=== PATIENT | male | born 1935 | race Caucasian/White ===

== ENCOUNTER 2020-08-08 00:37 | Observation (INO) | payer MEDICARE, OTHER ==
[2020-08-08] MEDS ORDERED: Nitroglycerin 0.4 MG Tab.SL SL ONE (01:16)
[2020-08-08] MEDS ORDERED: GI Cocktail Oral Solution 30 ML PO ONE (01:22)
--- NOTE | 2020-08-08 01:22 | EDM.PDOC ---
ED HPI GENERAL MEDICAL PROBLEM - General Chief Complaint: Chest Pain Stated Complaint: CP Time Seen by Provider: 08/08/20 01:00 Source of Information: Reports: Patient, Family History Limitations: Reports: No Limitations - History of Present Illness INITIAL COMMENTS - FREE TEXT/NARRATIVE: Patient presents to ER with complaints of bilateral anterior chest and upper quadrant abdominal pain since 190. Was able to eat supper without incident. Started to note the pain across his chest a couple hours later. Has been taking methylprednisolone and Celebrex since seeing Dr. Munguia earlier in the week for back problems. Also had injections x3 in his back at that time. Was returning home from [facility] after buying cigarettes when starting having the discomfort. "sort of short of breath". No diaphoresis. Did get nauseated, had one emesis. No blood in the vomitus. Does question if stools are darker in nature but no notable blood. No diarrhea. No history of cardiac events. Does take metoprolol for HTN and Lipitor for hyperlipidemia. Rates pain at a 6-7. Onset: Today Duration: Hour(s):, Constant Location: Reports: Chest Quality: Reports: Ache, Sharp Severity: Moderate Improves with: Reports: None Associated Symptoms: Reports: Chest Pain, Nausea/Vomiting, Shortness of Breath. Denies: Confusion, Cough, Diaphoresis, Fever/Chills, Loss of Appetite, Malaise, Syncope, Weakness Epigastric Pain Score (Numeric/FACES): 6 - Related Data Allergies Allergy/AdvReac Type Severity Reaction Status Date / Time No Known Allergies Allergy Verified 08/08/20 00:48 Home Meds: Home Meds Dextran 70/Hypromellose [Artificial Tears] 1 drop EYEBOTH DAILY PRN 01/09/14 [History] Metoprolol Tartrate [Lopressor] 50 mg PO DAILY 01/09/14 [History] atorvaSTATin [Lipitor] 20 mg PO DAILY 01/09/14 [History] Celecoxib 200 mg PO BID 08/08/20 [History] methylPREDNISolone [Medrol] 4 mg PO ASDIRECTED 08/08/20 [History] Past Medical History Cardiovascular History: Reports: High Cholesterol, Hypertension Musculoskeletal History: Reports: Back Pain, Chronic, Neck Pain, Chronic Social & Family History - Tobacco Use Tobacco Use Status *Q: Current Every Day Tobacco User Tobacco Use Within Last Twelve Months: Cigarettes Packs/Tins Daily: 1 ED ROS GENERAL - Review of Systems Review Of Systems: See Below Constitutional: Denies: Fever, Chills, Malaise, Weakness, Fatigue, Decreased Appetite HEENT: Denies: Ear Pain, Rhinitis, Sinus Problem, Throat Pain, Vertigo Respiratory: Reports: Shortness of Breath. Denies: Cough Cardiovascular: Reports: Chest Pain. Denies: Edema, Lightheadedness Endocrine: Denies: Fatigue GI/Abdominal: Reports: Abdominal Pain, Nausea, Vomiting, Other ("darker stools"). Denies: Constipation, Diarrhea : Reports: No Symptoms Musculoskeletal: Reports: Neck Pain, Back Pain Skin: Reports: No Symptoms Neurological: Reports: No Symptoms ED EXAM, GENERAL - Physical Exam Exam: See Below Exam Limited By: No Limitations General Appearance: Alert, WD/WN, No Apparent Distress Ears: Normal External Exam, Normal TMs Nose: Normal Inspection, Normal Mucosa, No Blood Throat/Mouth: Normal Inspection, Normal Oropharynx Head: Normocephalic Neck: Normal Inspection, Supple, Non-Tender Respiratory/Chest: No Respiratory Distress, Lungs Clear, Normal Breath Sounds Cardiovascular: Regular Rate, Rhythm GI/Abdominal: Normal Bowel Sounds, Soft, Tender (midepigastric area, mild in nature) Rectal (Males) Exam: Normal Exam, Heme - Stool Extremities: Normal Inspection, No Pedal Edema Neurological: Alert, Oriented Skin Exam: Warm, Dry Course - Vital Signs Last Recorded V/S: Last Vital Signs Temp 98 F 08/08/20 01:00 Pulse 66 08/08/20 01:32 Resp 18 08/08/20 01:00 BP 170/65 H 08/08/20 01:32 Pulse Ox 97 08/08/20 01:00 - Orders/Labs/Meds Orders: Active Orders 24 hr Category Date Time Status Patient Status Manage Transfer [TRANSFER] Routine ADT 08/08/20 01:39 Active EKG Documentation Completion [RC] STAT Care 08/08/20 00:39 Active Chest 2V [CR] Stat Exams 08/08/20 00:39 Taken Resuscitation Status Routine Resus Stat 08/08/20 01:40 Ordered Labs: Laboratory Tests 08/08/20 08/08/20 08/08/20 Range/Units 00:39 00:39 00:39 WBC 11.3 H (5.0-10.0) 10^3/uL RBC 3.81 L (4.50-6.00) 10^6/uL Hgb 13.3 L (14.0-18.0) g/dL Hct 37.4 L (40.0-54.0) % MCV 98.2 H (82.0-94.0) fL MCH 34.9 H (27.0-32.0) pg MCHC 35.6 (33.0-38.0) g/dL RDW Coeff of Yasemin 13.3 (11.0-15.0) % Plt Count 229 (150-400) 10^3/uL Neut % (Auto) 85.0 (35-85) % Lymph % (Auto) 7.0 L (10-55) % [place] % (Auto) 8.0 (0-16) % Eos % (Auto) 0 (0-5) % Baso % (Auto) 0 (0-3) % Neut # (Auto) 9.57 H (1.80-7.00) 10^3/uL Lymph # (Auto) 0.79 L (1.00-4.80) 10^3/uL [place] # (Auto) 0.90 H (0.00-0.80) 10^3/uL Eos # (Auto) 0.00 (0.00-0.45) 10^3/uL Baso # (Auto) 0.00 10^3/uL PT 9.9 (9.7-12.3) SEC INR 0.90 L (0.92-1.18) APTT 19.9 L (23.2-32.3) SEC Sodium 143 (136-145) mEq/L Potassium 4.0 (3.5-5.0) mEq/L Chloride 104 (98-106) mEq/L Carbon Dioxide 29 (21-32) mmol/L BUN 29 H D (7-18) mg/dL Creatinine 1.2 (0.7-1.3) mg/dL Est Cr Clr Drug Dosing TNP Estimated GFR (MDRD) 58 L (>=60) mL/min Glucose 131 H D (75-99) mg/dL Calcium 8.9 (8.4-10.1) mg/dL Total Bilirubin 0.5 (0.0-1.0) mg/dL AST 17 (15-37) U/L ALT 34 (12-78) U/L Alkaline Phosphatase 55 (46-116) U/L Lactate Dehydrogenase 166 (100-190) U/L Creatine Kinase 58 (35-232) U/L Troponin I < 0.017 (0.00-0.06) ng/mL Total Protein 6.9 (6.4-8.2) g/dL Albumin 3.7 (3.4-5.0) g/dL Amylase 63 (25-115) U/L Lipase 95 (73-393) U/L Meds: Medications Discontinued Medications Generic Name Dose Route Start Last Admin Trade Name Getq PRN Reason Stop Dose Admin Al Hydroxide/Mg Hydroxide 30 ml 08/08/20 01:22 Gi Cocktail Oral Solution 30 Ml PO 08/08/20 01:23 ONETIME ONE Al Hydroxide/Mg Hydroxide 30 0 ml 08/08/20 01:26 08/08/20 01:32 ml/ Lidocaine HCl 15 ml PO 08/08/20 01:27 30 ml ONETIME ONE Administration Nitroglycerin 0.4 mg 08/08/20 01:16 08/08/20 01:32 Nitroglycerin 0.4 Mg Tab.Sl SL 08/08/20 01:17 0.4 mg ONETIME ONE Administration - Re-Assessments/Exams Free Text/Narrative Re-Assessment/Exam: 08/08/20 01:45 labs are all normal, EKG shows sinus arrhythmia. Chest xray normal. Was given nitro which helped blood pressure, helped minimally. given GI cocktail with some relief. Will admit for observation. Start Protonix. telemetry. Departure - Departure Time of Disposition: 01:47 Disposition: Refer to Observation Condition: Fair Clinical Impression: Atypical chest pain, Midepigastric pain Forms: ED Department Discharge Sepsis Event Note (ED) - Focused Exam Vital Signs: Vital Signs Temp Pulse Pulse Resp BP BP Pulse Ox 08/08/20 01:32 66 170/65 H 08/08/20 01:00 98 F 60 18 170/65 H 97 - Problem List & Annotations (1) Atypical chest pain SNOMED Code(s): 397231912 Code(s): R07.89 - OTHER CHEST PAIN Status: Acute Priority: High (2) Midepigastric pain SNOMED Code(s): 20767245 Code(s): R10.13 - EPIGASTRIC PAIN Status: Acute Priority: High - Problem List Review Problem List Initiated/Reviewed/Updated: Yes - My Orders Last 24 Hours: My Active Orders 08/08/20 00:39 EKG Documentation Completion [RC] STAT Chest 2V [CR] Stat 08/08/20 01:39 Patient Status Manage Transfer [TRANSFER] Routine 08/08/20 01:40 Resuscitation Status Routine - Assessment/Plan Admission H&P: Please use this note as an admission H&P Last 24 Hours: My Active Orders 08/08/20 00:39 EKG Documentation Completion [RC] STAT Chest 2V [CR] Stat 08/08/20 01:39 Patient Status Manage Transfer [TRANSFER] Routine 08/08/20 01:40 Resuscitation Status Routine Assessment:: Atypical Chest Pain Midepigastric pain Plan: Admit observation. Start IV Protonix. Hold steroids and Celebrex for now. Fentanyl as needed for pain. property assessment monitor.
[2020-08-08] MEDS ORDERED: Alum Hydrox/Mag Hydrox/Simeth 30 ML, Lidocaine 2% 15 ML PO ONE ×2 (01:26)
[2020-08-08 01:28] LABS: CHLORIDE,CL 104 mEq/L (98-106); SODIUM,NA 143 mEq/L (136-145)
[2020-08-08 01:32] LABS: PTT,PARTIAL THROMBOPLSTIN TIME 19.9 SEC (23.2-32.3)
[2020-08-08] MEDS ORDERED: Polyvinyl Alcohol 1.4% Ophth Soln 15 ML Bottle EYEBOTH PRN (01:54)
[2020-08-08] MEDS ORDERED: Sodium Chloride 0.9% 1,000 ML IV SCH (02:42)
[2020-08-08] MEDS ORDERED: Ondansetron 4 MG Tab.DIS PO PRN (02:42)
[2020-08-08] MEDS ORDERED: Ondansetron 4 MG/2 ML SDV IV PRN (02:42)
[2020-08-08] MEDS ORDERED: fentaNYL 50 MCG/ML SDV IVPUSH PRN (02:42)
[2020-08-08] MEDS ORDERED: Acetaminophen 325 MG Tab PO PRN (02:42)
[2020-08-08] MEDS ORDERED: Pantoprazole 40 MG Vial IVPUSH ONE (03:00)
[2020-08-08 07:39] LABS: CHLORIDE,CL 106 mEq/L (98-106); SODIUM,NA 144 mEq/L (136-145)
[2020-08-08] MEDS ORDERED: Metoprolol Tartrate 50 MG Tab PO SCH (08:00)
[2020-08-08] MEDS ORDERED: atorvaSTATin 20 MG Tab PO SCH (08:00)
--- NOTE | 2020-08-08 14:13 | PCM.DCSUM1 ---
Discharge Summary - Hospital Course Free Text/Narrative:: Patient presents to ER with complaints of bilateral anterior chest and upper quadrant abdominal pain since 1900. Was able to eat supper without incident. Started to note the pain across his chest a couple hours later. Has been taking methylprednisolone and Celebrex since seeing Dr. Munguia earlier in the week for back problems. Also had injections x3 in his back at that time. Was returning home from [facility] after buying cigarettes when starting having the discomfort. "sort of short of breath". No diaphoresis. Did get nauseated, had one emesis. No blood in the vomitus. Does question if stools are darker in nature but no notable blood. No diarrhea. No history of cardiac events. Does take metoprolol for HTN and Lipitor for hyperlipidemia. Rates pain at a 6-7. EKG showed sinus arrhythmia. Troponin negative. All labs essentially unremarkable. Did get some relief from GI cocktail. Admitted for cardiac monitoring, repeat trononin and IV Protonix. Diagnosis: Stroke: No Modified [place] Scale: No Symptoms at All Modified [place] Scale Score: 0 - Discharge Data Discharge Date: 08/08/20 Discharge Disposition: Home, Self-Care 01 Condition: Good - Referral to Home Health Primary Care Physician: Mike Wynn MD - Discharge Diagnosis/Problem(s) (1) Atypical chest pain SNOMED Code(s): 768065671 ICD Code: R07.89 - OTHER CHEST PAIN Status: Acute Priority: High Current Visit: Yes (2) Midepigastric pain SNOMED Code(s): 50915883 ICD Code: R10.13 - EPIGASTRIC PAIN Status: Acute Priority: High Current Visit: Yes - Patient Summary/Data Complications: none Hospital Course: Patient is feeling good this am. Pain was resolved a few hours after admit. IV Protonix was started. Held NSAIDS and prednisone. Occult stool was negative. Tolerated full liquid diet this am without pain, increased to regular this noon and did well. Has not had recurring pain. Ambulating in halls. Tolerated well. Will discharge home and further hold his medrol dose pack and Celebrex at this time. Follow up with Dr. Munguia later in the week. May need gallbladder work up if pain returns as well or consider EGD. - Patient Instructions Diet: Usual Diet as Tolerated Activity: As Tolerated - Discharge Plan *PRESCRIPTION DRUG MONITORING PROGRAM REVIEWED*: No *COPY OF PRESCRIPTION DRUG MONITORING REPORT IN PATIENT SEB: No Prescriptions/Med Rec: Pantoprazole Sodium [Protonix] 40 mg PO DAILY #30 tablet. Home Medications: Home Meds Dextran 70/Hypromellose [Artificial Tears] 1 drop EYEBOTH DAILY PRN 01/09/14 [History] Metoprolol Tartrate [Lopressor] 50 mg PO DAILY 01/09/14 [History] atorvaSTATin [Lipitor] 20 mg PO DAILY 01/09/14 [History] Pantoprazole Sodium [Protonix] 40 mg PO DAILY #30 tablet. 08/08/20 [Rx] Forms: ED Department Discharge Referrals: Adam Munguia MD [Ordering Only Provider] - (Follow up with Dr. Munguia in one week) - Discharge Summary/Plan Comment DC Time >30 min.: No - General Info Date of Service: 08/08/20 Admission Dx/Problem (Free Text: Midepigastric Pain Functional Status: Reports: Pain Controlled, Tolerating Diet, Ambulating, Urinating - Review of Systems General: Reports: No Symptoms HEENT: Reports: Rhinitis. Denies: Ear Pain, Sinus Congestion Pulmonary: Denies: Shortness of Breath, Cough Cardiovascular: Denies: Chest Pain, Edema, Lightheadedness Gastrointestinal: Denies: Abdominal Pain, Diarrhea, Nausea, Vomiting Genitourinary: Reports: No Symptoms Musculoskeletal: Reports: Back Pain Skin: Reports: No Symptoms Neurological: Reports: Weakness - Patient Data Vitals - Most Recent: Last Vital Signs Temp 98.2 F 08/08/20 12:00 Pulse 77 08/08/20 12:00 Resp 18 08/08/20 12:00 BP 112/55 L 08/08/20 12:00 Pulse Ox 92 L 08/08/20 12:00 Weight - Most Recent: 151 lb 3.2 oz Lab Results - Last 24 hrs: Laboratory Results - last 24 hr 08/08/20 08/08/20 08/08/20 Range/Units 00:39 00:39 00:39 WBC 11.3 H (5.0-10.0) 10^3/uL RBC 3.81 L (4.50-6.00) 10^6/uL Hgb 13.3 L (14.0-18.0) g/dL Hct 37.4 L (40.0-54.0) % MCV 98.2 H (82.0-94.0) fL MCH 34.9 H (27.0-32.0) pg MCHC 35.6 (33.0-38.0) g/dL RDW Coeff of Yasemin 13.3 (11.0-15.0) % Plt Count 229 (150-400) 10^3/uL Neut % (Auto) 85.0 (35-85) % Lymph % (Auto) 7.0 L (10-55) % [place] % (Auto) 8.0 (0-16) % Eos % (Auto) 0 (0-5) % Baso % (Auto) 0 (0-3) % Neut # (Auto) 9.57 H (1.80-7.00) 10^3/uL Lymph # (Auto) 0.79 L (1.00-4.80) 10^3/uL [place] # (Auto) 0.90 H (0.00-0.80) 10^3/uL Eos # (Auto) 0.00 (0.00-0.45) 10^3/uL Baso # (Auto) 0.00 10^3/uL PT 9.9 (9.7-12.3) SEC INR 0.90 L (0.92-1.18) APTT 19.9 L (23.2-32.3) SEC Sodium 143 (136-145) mEq/L Potassium 4.0 (3.5-5.0) mEq/L Chloride 104 (98-106) mEq/L Carbon Dioxide 29 (21-32) mmol/L BUN 29 H D (7-18) mg/dL Creatinine 1.2 (0.7-1.3) mg/dL Est Cr Clr Drug Dosing TNP Estimated GFR (MDRD) 58 L (>=60) mL/min Glucose 131 H D (75-99) mg/dL Calcium 8.9 (8.4-10.1) mg/dL Total Bilirubin 0.5 (0.0-1.0) mg/dL AST 17 (15-37) U/L ALT 34 (12-78) U/L Alkaline Phosphatase 55 (46-116) U/L Lactate Dehydrogenase 166 (100-190) U/L Creatine Kinase 58 (35-232) U/L Troponin I < 0.017 (0.00-0.06) ng/mL Total Protein 6.9 (6.4-8.2) g/dL Albumin 3.7 (3.4-5.0) g/dL Amylase 63 (25-115) U/L Lipase 95 (73-393) U/L 08/08/20 08/08/20 Range/Units 05:11 05:11 WBC 8.7 (5.0-10.0) 10^3/uL RBC 3.57 L (4.50-6.00) 10^6/uL Hgb 12.1 L (14.0-18.0) g/dL Hct 36.2 L (40.0-54.0) % MCV 101.4 H (82.0-94.0) fL MCH 33.9 H (27.0-32.0) pg MCHC 33.4 (33.0-38.0) g/dL RDW Coeff of Yasemin 13.3 (11.0-15.0) % Plt Count 189 (150-400) 10^3/uL Neut % (Auto) 82.6 (35-85) % Lymph % (Auto) 7.2 L (10-55) % [place] % (Auto) 10.2 (0-16) % Eos % (Auto) 0 (0-5) % Baso % (Auto) 0 (0-3) % Neut # (Auto) 7.19 H (1.80-7.00) 10^3/uL Lymph # (Auto) 0.63 L (1.00-4.80) 10^3/uL [place] # (Auto) 0.89 H (0.00-0.80) 10^3/uL Eos # (Auto) 0.00 (0.00-0.45) 10^3/uL Baso # (Auto) 0.00 10^3/uL PT (9.7-12.3) SEC INR (0.92-1.18) APTT (23.2-32.3) SEC Sodium 144 (136-145) mEq/L Potassium 4.4 (3.5-5.0) mEq/L Chloride 106 (98-106) mEq/L Carbon Dioxide 29 (21-32) mmol/L BUN 28 H (7-18) mg/dL Creatinine 1.0 (0.7-1.3) mg/dL Est Cr Clr Drug Dosing 54.15 Estimated GFR (MDRD) > 60 (>=60) mL/min Glucose 121 H (75-99) mg/dL Calcium 8.3 L (8.4-10.1) mg/dL Total Bilirubin (0.0-1.0) mg/dL AST (15-37) U/L ALT (12-78) U/L Alkaline Phosphatase (46-116) U/L Lactate Dehydrogenase (100-190) U/L Creatine Kinase 48 (35-232) U/L Troponin I < 0.017 (0.00-0.06) ng/mL Total Protein (6.4-8.2) g/dL Albumin (3.4-5.0) g/dL Amylase (25-115) U/L Lipase (73-393) U/L BETI Results - Last 24 hrs: Microbiology 08/08/20 02:42 Occult Blood - Preliminary Stool / Feces Med Orders - Current: Current Medications Acetaminophen (Acetaminophen 325 Mg Tab) 650 mg PO Q4H PRN PRN Reason: Pain (Mild 1-3)/fever Artificial Tears (Polyvinyl Alcohol 1.4% Ophth Soln 15 Ml Bottle) 1 ml EYEBOTH DAILY PRN PRN Reason: Dry Eyes Atorvastatin Calcium (Atorvastatin 20 Mg Tab) 20 mg PO DAILY [facility] Last Admin: 08/08/20 07:48 Dose: 20 mg Documented by: Fentanyl (Fentanyl 50 Mcg/Ml Sdv) 25 mcg IVPUSH Q6H PRN PRN Reason: Pain Last Admin: 08/08/20 03:05 Dose: 25 mcg Documented by: Sodium Chloride (Normal Saline) 1,000 mls @ 75 mls/hr IV ASDIRECTED [facility] Last Admin: 08/08/20 03:06 Dose: 75 mls/hr Documented by: Metoprolol Tartrate (Metoprolol Tartrate 50 Mg Tab) 50 mg PO DAILY [facility] Last Admin: 08/08/20 10:47 Dose: Not Given Documented by: Ondansetron HCl (Ondansetron 4 Mg Tab.Dis) 4 mg PO Q4H PRN PRN Reason: nausea, able to take PO Ondansetron HCl (Ondansetron 4 Mg/2 Ml Sdv) 4 mg IV Q4H PRN PRN Reason: Nausea/Vomiting Last Admin: 08/08/20 03:06 Dose: 4 mg Documented by: Pantoprazole Sodium (Pantoprazole 40 Mg Vial) 40 mg IVPUSH Q24H [place] Discontinued Medications Al Hydroxide/Mg Hydroxide (Gi Cocktail Oral Solution 30 Ml) 30 ml PO ONETIME ONE Stop: 08/08/20 01:23 Al Hydroxide/Mg Hydroxide 30 (ml/ Lidocaine HCl 15 ml) 0 ml PO ONETIME ONE Stop: 08/08/20 01:27 Last Admin: 08/08/20 01:32 Dose: 30 ml Documented by: Nitroglycerin (Nitroglycerin 0.4 Mg Tab.Sl) 0.4 mg SL ONETIME ONE Stop: 08/08/20 01:17 Last Admin: 08/08/20 01:32 Dose: 0.4 mg Documented by: Pantoprazole Sodium (Pantoprazole 40 Mg Vial) 40 mg IVPUSH NOW ONE Stop: 08/08/20 03:01 Last Admin: 08/08/20 03:05 Dose: 40 mg Documented by: - Exam General: Reports: Alert, Oriented HEENT: Reports: Mucous Membr. Moist/[place] Neck: Reports: Supple Lungs: Reports: Clear to Auscultation, Normal Respiratory Effort Cardiovascular: Reports: Regular Rate, Regular Rhythm GI/Abdominal Exam: Normal Bowel Sounds, Soft, Non-Tender Extremities: Normal Inspection, No Pedal Edema Skin: Reports: Warm, Dry Neurological: Reports: No New Focal Deficit
[2020-08-09] MEDS ORDERED: Pantoprazole 40 MG Vial IVPUSH SCH (07:30)
== END 2020-08-08 14:45 | disposition home or self-care (01) ==
LOC: CC.ED 00:37 → CC.MS 01:39 → UNDOADMOB 01:45 → CC.MS 01:45 → UNDODISOB 14:45
PROVIDERS: ADMIT Physician Assistant Medical; ATTEND Family Medicine
DX: R07.89 Other chest pain (principal); R10.13 Epigastric pain; I10 Essential (primary) hypertension; F17.210 Nicotine dependence, cigarettes, uncomplicated; E78.00 Pure hypercholesterolemia, unspecified; Z79.899 Other long term (current) drug therapy
CPT/HCPCS: 36415; 71046; 80048; 80053; 82150; 82270; 82550; 83615; 83690; 84484; 85025; 85610; 85730; 93005; 93010; 96374; 96375; 99235; 99285; A9270; C9113; G0378; J2405; J3010; J7030

== ENCOUNTER 2025-02-01 11:47 | Inpatient (IN) | payer MEDICARE ==
[2025-02-01 11:59] LABS: BASOPHILS ABSOLUTE AUTO 0.06 10^3/uL (0.00-0.50); BASOPHILS PERCENT AUTO 0.8 % (0-1); EOSINOPHILS ABSOLUTE AUTO 0.17 10^3/uL (0.00-1.50); EOSINOPHILS PERCENT AUTO 2.2 % (0-6); IMMATURE GRAN ABSOLUTE AUTO 0.02 10^3/uL (0.00-0.49); IMMATURE GRAN PERCENT AUTO 0.3 % (0.0-4.9); LYMPHOCYTES ABSOLUTE AUTO 0.80 10^3/uL (0.60-5.00); LYMPHOCYTES PERCENT AUTO 10.2 % (24-44); MONOCYTES ABSOLUTE AUTO 0.59 10^3/uL (0.00-1.50); MONOCYTES PERCENT AUTO 7.5 % (0-10); NEUTROPHILS ABSOLUTE AUTO 6.23 x10^3/uL (1.80-8.00); NEUTROPHILS PERCENT AUTO 79.0 % (41-71); PLATELET COUNT,PLT 311 10^3/uL (150-400); RED BLOOD CELL COUNT 3.83 x10^6/uL (4.50-6.00); WHITE BLOOD CELL COUNT,WBC 7.9 10^3/uL (4.0-11.0)
[2025-02-01 12:20] LABS: ALANINE AMINOTRANSFERASE,ALT 31.0 U/L (12-78); ASPARTATE AMNIOTRANSFERASE,AST 20.0 U/L (15-37); BILIRUBIN TOTAL 0.5 mg/dL (0.0-1.0); BLOOD UREA NITROGEN,BUN 30.0 mg/dL (7-18); CARBON DIOXIDE,CO2 26.0 mmol/L (21-32); CHLORIDE,CL 106.0 mEq/L (98-106); CREATININE 1.4 mg/dL (0.7-1.3); EST CRCL DRUG DOSING (CG) 32.76 mL/min; GLUCOSE RANDOM 133.0 mg/dL (75-99); POTASSIUM,K 3.8 mEq/L (3.5-5.0); PROTEIN TOTAL,TP 6.8 g/dL (6.4-8.2); SODIUM,NA 142.0 mEq/L (136-145)
[2025-02-01 12:21] LABS: ESTIMATED GFR 48.0 mL/min (>=60)
[2025-02-01] MEDS ORDERED: DEXTRAN EYEBOTH PRN (13:19)
[2025-02-01] MEDS ORDERED: HYPROMELLOSE EYEBOTH PRN (13:19)
[2025-02-01] MEDS ORDERED: [UNRECOGNIZED DRUG - OTHER] EYEBOTH PRN (13:19)
[2025-02-01] MEDS ORDERED: Sodium Chloride 0.9% 10 ML Syringe FLUSH PRN (13:19)
[2025-02-01] MEDS ORDERED: Ondansetron 4 MG Tab.DIS PO PRN (13:19)
[2025-02-01] MEDS ORDERED: Ondansetron 4 MG/2 ML SDV IV PRN (13:19)
[2025-02-01] MEDS: Furosemide 40 MG/4 ML VIAL IVPUSH SCH (13:23)
[2025-02-02 07:44] LABS: BASOPHILS ABSOLUTE AUTO 0.05 10^3/uL (0.00-0.50); BASOPHILS PERCENT AUTO 0.8 % (0-1); EOSINOPHILS ABSOLUTE AUTO 0.33 10^3/uL (0.00-1.50); EOSINOPHILS PERCENT AUTO 5.3 % (0-6); IMMATURE GRAN ABSOLUTE AUTO 0.01 10^3/uL (0.00-0.49); IMMATURE GRAN PERCENT AUTO 0.2 % (0.0-4.9); LYMPHOCYTES ABSOLUTE AUTO 0.86 10^3/uL (0.60-5.00); LYMPHOCYTES PERCENT AUTO 13.7 % (24-44); MONOCYTES ABSOLUTE AUTO 0.56 10^3/uL (0.00-1.50); MONOCYTES PERCENT AUTO 8.9 % (0-10); NEUTROPHILS ABSOLUTE AUTO 4.45 x10^3/uL (1.80-8.00); NEUTROPHILS PERCENT AUTO 71.1 % (41-71); PLATELET COUNT,PLT 277 10^3/uL (150-400); RED BLOOD CELL COUNT 3.34 x10^6/uL (4.50-6.00); WHITE BLOOD CELL COUNT,WBC 6.3 10^3/uL (4.0-11.0)
[2025-02-02 07:53] LABS: ALANINE AMINOTRANSFERASE,ALT 26.0 U/L (12-78); ASPARTATE AMNIOTRANSFERASE,AST 20.0 U/L (15-37); BILIRUBIN TOTAL 0.5 mg/dL (0.0-1.0); BLOOD UREA NITROGEN,BUN 26.0 mg/dL (7-18); CARBON DIOXIDE,CO2 29.0 mmol/L (21-32); CHLORIDE,CL 107.0 mEq/L (98-106); CREATININE 1.2 mg/dL (0.7-1.3); EST CRCL DRUG DOSING (CG) 41.17 mL/min; GLUCOSE RANDOM 101.0 mg/dL (75-99); POTASSIUM,K 3.5 mEq/L (3.5-5.0); PROTEIN TOTAL,TP 5.7 g/dL (6.4-8.2); SODIUM,NA 144.0 mEq/L (136-145)
[2025-02-02 08:04] LABS: ESTIMATED GFR 58.0 mL/min (>=60)
[2025-02-03 07:45] LABS: BASOPHILS ABSOLUTE AUTO 0.07 10^3/uL (0.00-0.50); BASOPHILS PERCENT AUTO 0.9 % (0-1); EOSINOPHILS ABSOLUTE AUTO 0.45 10^3/uL (0.00-1.50); EOSINOPHILS PERCENT AUTO 5.9 % (0-6); IMMATURE GRAN ABSOLUTE AUTO 0.02 10^3/uL (0.00-0.49); IMMATURE GRAN PERCENT AUTO 0.3 % (0.0-4.9); LYMPHOCYTES ABSOLUTE AUTO 1.17 10^3/uL (0.60-5.00); LYMPHOCYTES PERCENT AUTO 15.4 % (24-44); MONOCYTES ABSOLUTE AUTO 0.77 10^3/uL (0.00-1.50); MONOCYTES PERCENT AUTO 10.2 % (0-10); NEUTROPHILS ABSOLUTE AUTO 5.10 x10^3/uL (1.80-8.00); NEUTROPHILS PERCENT AUTO 67.3 % (41-71); PLATELET COUNT,PLT 297 10^3/uL (150-400); RED BLOOD CELL COUNT 3.50 x10^6/uL (4.50-6.00); WHITE BLOOD CELL COUNT,WBC 7.6 10^3/uL (4.0-11.0)
[2025-02-03 07:55] LABS: ALANINE AMINOTRANSFERASE,ALT 25.0 U/L (12-78); ASPARTATE AMNIOTRANSFERASE,AST 21.0 U/L (15-37); BILIRUBIN TOTAL 0.6 mg/dL (0.0-1.0); BLOOD UREA NITROGEN,BUN 30.0 mg/dL (7-18); CARBON DIOXIDE,CO2 28.0 mmol/L (21-32); CHLORIDE,CL 108.0 mEq/L (98-106); CREATININE 1.2 mg/dL (0.7-1.3); EST CRCL DRUG DOSING (CG) 40.76 mL/min; GLUCOSE RANDOM 110.0 mg/dL (75-99); POTASSIUM,K 3.3 mEq/L (3.5-5.0); PROTEIN TOTAL,TP 6.1 g/dL (6.4-8.2); SODIUM,NA 146.0 mEq/L (136-145)
[2025-02-03 07:59] LABS: ESTIMATED GFR 58.0 mL/min (>=60)
[2025-02-03 10:45] LABS: APPEARANCE,URINE CLEAR (CLEAR); GLUCOSE,URINE NEGATIVE (NEGATIVE); OCCULT BLOOD,URINE NEGATIVE (NEGATIVE)
[2025-02-03] MEDS: Potassium Chloride 20 MEQ Tab.ER PO ONE (11:31)
== END 2025-02-03 13:45 | disposition home or self-care (01) | DRG 291 ==
LOC: CC.ED 11:47 → CC.MS 12:00 → UNDOADMIN 12:00 → CC.MS 12:33 → UNDODISIN 02-03 13:45
PROVIDERS: ADMIT Physician Assistant Medical; ATTEND Physician Assistant Medical
DX: I11.0 Hypertensive heart disease with heart failure (principal); I50.31 Acute diastolic (congestive) heart failure; I10 Essential (primary) hypertension; G89.29 Other chronic pain; E78.00 Pure hypercholesterolemia, unspecified; Z98.49 Cataract extraction status, unspecified eye; Z79.899 Other long term (current) drug therapy
CPT/HCPCS: 36415; 70450; 71046; 80053; 81003; 83880; 85025; 86140; 99223; 99233; 99238; 99285; A9270-GY; J1650; J1938